=== PATIENT | female | born 1985 | race Caucasian/White ===

== ENCOUNTER 2016-10-29 16:06 | Emergency (ER) | payer OTHER ==
[2016-10-29] MEDS ORDERED: Penicillin G Benzathine 1.2MU* 1,200,000 UNITS/2 ML SYR IM ONE (18:53)
--- NOTE | 2016-10-29 19:01 | ED ---
Throat Pain/Nasal Congestion - HPI Summary HPI Summary: 31 year old female presents with throat pain starting this Saturday. She also reports cold symptoms start 2 days ago. She states she has had low grade fevers. She denies any ear pain. She has been taking Tylenol for her pain. She admits to a dry cough and sinus congestion. She denies any SOB or chest pain. She denies any one else being sick but she does have young children at home. She admits to a decrease in appetite. She is able to manage her secretions. She is able to drink liquids but has difficulty with food due to swelling. - History of Current Complaint Chief Complaint: EDThroatPain Time Seen by Provider: 10/29/16 17:40 - Allergies/Home Medications Allergies/Adverse Reactions: Allergies Allergy/AdvReac Type Severity Reaction Status Date / Time No Known Allergies Allergy Verified 10/29/16 18:02 PMH/Surg Hx/FS Hx/Imm Hx Endocrine/Hematology History: Denies: Hx Anticoagulant Therapy Respiratory History: Denies: Hx Asthma Infectious Disease History: Denies: Traveled Outside the [place] in Last 30 Days - Family History Known Family History: Positive: Cardiac Disease - Social History Alcohol Use: Occasionally Substance Use Type: Reports: None Smoking Status (MU): Never Smoked Tobacco Review of Systems Negative: Fever Positive: Sore Throat Negative: Chest Pain Negative: Shortness Of Breath All Other Systems Reviewed And Are Negative: Yes Physical Exam Triage Information Reviewed: Yes Vital Signs On Initial Exam: Initial Vitals Temp Pulse Resp BP Pulse Ox 99.3 F 107 18 129/75 98 10/29/16 16:46 10/29/16 16:46 10/29/16 16:46 10/29/16 16:46 10/29/16 16:46 Vital Signs Reviewed: Yes Appearance: Positive: Well-Appearing Skin: Positive: Warm, Dry Head/Face: Positive: Normal Head/Face Inspection Eyes: Positive: Normal, EOMI, GALINA, Conjunctiva Clear ENT: Positive: TMs normal, Tonsillar swelling, Tonsillar exudate, Other - uvula midline, symmetric soft palate. Negative: Trismus Neck: Positive: Supple, Enlarged Nodes @ - cervical chain Respiratory/Lung Sounds: Positive: Clear to Auscultation, Breath Sounds Present Cardiovascular: Positive: Normal, RRR Diagnostics - Vital Signs Vital Signs Temp Pulse Resp BP Pulse Ox 10/29/16 16:46 99.3 F 107 18 129/75 98 - Laboratory Lab Results: Lab Results 10/29/16 Range/Units 17:33 Group A Strep Rapid Positive H (Negative) Lab Statement: Any lab studies that have been ordered have been reviewed, and results considered in the medical decision making process. EENT Course/Dx - Course Course Of Treatment: 31 year old female presents with throat pain starting this Saturday. She also reports cold symptoms start 2 days ago. She states she has had low grade fevers. She denies any ear pain. She has been taking Tylenol for her pain. She admits to a dry cough and sinus congestion. She denies any SOB or chest pain. She denies any one else being sick but she does have young children at home. She admits to a decrease in appetite. She is able to manage her secretions. soft palate symmetric, uvula midline, tonsills erythema and exudate present +3 tonsils, strept pos, patient requested a dose of PCN G, also gave script for dexamethasone, patient understands and agrees with plan - Differential Diagnoses Differential Diagnoses: Pharyngitis, Other - strept pharyngitis, peritonsillar abscess - Diagnoses Provider Diagnoses: Strep throat Discharge - Discharge Plan Condition: Stable Disposition: HOME Prescriptions: Dexamethasone Oral Solution* [Decadron Oral Solution*] 4 mg PO ONCE #20 ml Patient Education Materials: Strep Throat (ED) Referrals: Non Staff,Doctor [Primary Care Provider] - 2 Days Additional Instructions: Take 4ml of steroid once a day for 5 days Take Tylenol or ibuprofen for pain/fever every 6 hours Can gargle salt water, use cough drops or products such as cloraseptic spray for pain Return to ED if develop difficulty breathing or unable to manage secretions, any new or worsening symptoms
[2016-10-29 19:26] VITALS: BP 123/77
== END 2016-10-29 19:26 | disposition home or self-care (01) ==
LOC: ED 16:06
DX: J02.0 Streptococcal pharyngitis (principal)
CPT/HCPCS: 87651; 96372; 99282; J0558